=== PATIENT | female | born 1940 | race Caucasian/White ===

== ENCOUNTER 2024-10-27 19:35 | Inpatient (IN) | payer MEDICARE, BC ==
[~2024-10-27] VITALS: Ht 165.1 cm; Wt 51.3 kg
[2024-10-27] MEDS ORDERED: ONDANSETRON HCL/PF 4 MG/2 ML VIAL ONE (20:15)
[2024-10-27] MEDS ORDERED: MORPHINE SULFATE INJ 4 MG/ML DISP.SYRIN ONE ×2 (20:15→22:10)
[2024-10-27] MEDS: ONDANSETRON HCL/PF 4 MG/2 ML VIAL IVP ONE (20:22)
[2024-10-27 20:25] LABS: BASOPHILS % (AUTO) 0.3 % (0.0-2.0); EOSINOPHILS # (AUTO) 0.1 K/uL (0.0-0.7); HEMATOCRIT 41 % (33-45); LYMPHOCYTES # (AUTO) 1.1 K/uL (0.8-4.8); LYMPHOCYTES % (AUTO) 12.1 % (20.0-44.0); MEAN CORPUSCULAR HEMOGLOBIN 33 PG (26.0-33.0); MEAN CORPUSCULAR HGB CONC 34 g/dl (31.0-36.0); MEAN CORPUSCULAR VOLUME 96 fL (82-100); MONOCYTES # (AUTO) 0.8 K/uL (0.1-1.30); MONOCYTES % (AUTO) 8.9 % (2.0-12.0); NEUTROPHILS # (AUTO) 6.8 K/uL (1.8-8.9); NEUTROPHILS % (AUTO) 77.7 % (43.0-81.0); PLATELET COUNT (AUTO) 202 K/uL (150-450); RED BLOOD CELL COUNT(AUTO) 4.26 MIL/uL (4.0-5.2); RED CELL DISTRIBUTION WIDTH 12.9 % (11.5-15.0); WHITE BLOOD COUNT (AUTO) 8.8 K/uL (4.3-11.0)
[2024-10-27] MEDS: MORPHINE SULFATE INJ 2 MG/ML DISP.SYRIN IV ONE ×2 (20:25→21:58)
[2024-10-27 20:35] LABS: CALCIUM, SERUM 8.9 mg/dL (8.5-10.1)
[2024-10-27 20:50] LABS: INR 1.06 (0.91-1.10); PARTIAL THROMBOPLASTIN TIME 23.4 SEC (24.3-34.3); PROTHROMBIN TIME 11.2 SECS (9.2-11.1)
[2024-10-27] MEDS ORDERED: HYDROMORPHONE 1 MG/1 ML DISP.SYRIN ONE (22:52)
[2024-10-27] MEDS: HYDROMORPHONE 1 MG/1 ML DISP.SYRIN IV PRN (22:58)
[2024-10-27] MEDS ORDERED: MAGNESIUM HYDROXIDE 30 ML UDC PO PRN (23:00)
[2024-10-27] MEDS ORDERED: Z GUARD REMEDY 4 OZ OINT TP PRN (23:00)
[2024-10-27] MEDS ORDERED: MAG HYDROX/AL HYDROX/SIMETH 30 ML UDC PO PRN (23:00)
[2024-10-27] MEDS: IV D5/0.45 NACL 1,000 ML IV SCH (23:53)
[2024-10-28] MEDS ORDERED: ALEN70TA80 PO (00:44)
[2024-10-28] MEDS ORDERED: LEVO75TA7 PO (00:44)
[2024-10-28] MEDS ORDERED: PREG50CA PO (00:44)
[2024-10-28] MEDS ORDERED: ROSU20TA2 PO (00:44)
[2024-10-28] MEDS: HYDROMORPHONE 1 MG/1 ML DISP.SYRIN IV ONE (01:07)
[2024-10-28] MEDS: ONDANSETRON HCL/PF 4 MG/2 ML VIAL IVP PRN (03:01)
[2024-10-28 06:39] LABS: CALCIUM, SERUM 9.1 mg/dL (8.5-10.1); CREATININE 0.9 mg/dL (0.6-1.3); MAGNESIUM 2.1 mg/dL (1.8-2.4); PHOSPHORUS 4.2 mg/dL (2.5-4.9); POTASSIUM 4.7 mmol/L (3.5-5.1)
[2024-10-28 06:44] LABS: BASOPHILS % (AUTO) 0.1 % (0.0-2.0); HEMATOCRIT 41 % (33-45); HEMOGLOBIN 13.8 g/dL (11.5-14.8); LYMPHOCYTES # (AUTO) 0.7 K/uL (0.8-4.8); LYMPHOCYTES % (AUTO) 5.3 % (20.0-44.0); MEAN CORPUSCULAR HEMOGLOBIN 33 PG (26.0-33.0); MEAN CORPUSCULAR HGB CONC 34 g/dl (31.0-36.0); MEAN CORPUSCULAR VOLUME 97 fL (82-100); MONOCYTES # (AUTO) 1.3 K/uL (0.1-1.30); MONOCYTES % (AUTO) 10.3 % (2.0-12.0); NEUTROPHILS # (AUTO) 10.4 K/uL (1.8-8.9); NEUTROPHILS % (AUTO) 84.3 % (43.0-81.0); PLATELET COUNT (AUTO) 175 K/uL (150-450); RED BLOOD CELL COUNT(AUTO) 4.23 MIL/uL (4.0-5.2); RED CELL DISTRIBUTION WIDTH 13.2 % (11.5-15.0); WHITE BLOOD COUNT (AUTO) 12.3 K/uL (4.3-11.0)
[2024-10-28] MEDS: LEVOTHYROXINE SODIUM 75 MCG TABLET PO SCH (07:05)
[2024-10-28 07:30] VITALS: BP 115/59; TEMP 98.1; O2SAT 94
[2024-10-28 07:30] LABS: THYROID STIMULATING HORMONE 9.26 uIU/mL (0.358-3.74)
[2024-10-28] MEDS: PANTOPRAZOLE 40 MG VIAL IV SCH (08:11)
[2024-10-28] MEDS: ATORVASTATIN 40 MG TABLET PO SCH (08:12)
[2024-10-28] MEDS: PREGABALIN 25 MG CAPSULE PO SCH (08:12)
[2024-10-28] MEDS: HYDROMORPHONE 1 MG/1 ML DISP.SYRIN IV PRN (09:33)
[2024-10-28] MEDS ORDERED: HYDROMORPHONE 1 MG/1 ML DISP.SYRIN IV PRN (11:00)
[2024-10-28 11:35] LABS: THYROID STIMULATING HORMONE 9.18 uIU/mL (0.358-3.74)
[2024-10-28] MEDS ORDERED: BUPIVACAINE 0.5 % PF 150 MG/30 ML VIAL ONE (14:14)
[2024-10-28] MEDS ORDERED: FENTANYL PF 100MCG/2ML AMPUL ONE (14:16)
[2024-10-28] MEDS ORDERED: TRANEXAMIC ACID 1,000 MG/10 ML VIAL ONE ×2 (14:16→15:16)
[2024-10-28] MEDS ORDERED: ROCURONIUM BROMIDE 50 MG/5 ML ONE (14:17)
[2024-10-28] MEDS ORDERED: MORPHINE SULFATE INJ 2 MG/ML DISP.SYRIN IV PRN ×2 (16:30)
[2024-10-28] MEDS ORDERED: LABETALOL 20 MG/4 ML VIAL IV PRN (16:30)
[2024-10-28] MEDS ORDERED: ALBUTEROL FS 2.5 MG/0.5 ML VIAL.NEB ONE (16:53)
[2024-10-28] MEDS ORDERED: ALBUTEROL FS 2.5 MG/3 ML VIAL.NEB ONE (16:53)
[2024-10-28] MEDS ORDERED: ALBUTEROL SULFATE 8 GM HFA.AER.AD ONE (16:54)
[2024-10-28] MEDS: FENTANYL PF 100MCG/2ML AMPUL IV PRN (17:30)
[2024-10-28] MEDS ORDERED: ALBUTEROL HALF STRENGTH 1.25 MG/3 ML VIAL.NEB ONE (17:40)
[2024-10-28] MEDS ORDERED: ALBUTEROL HALF STRENGTH 1.25 MG/3 ML VIAL.NEB NEB SCH ×2 (18:00)
[2024-10-28 20:00] VITALS: BP 108/57; TEMP 97.7; O2SAT 90
[2024-10-29] MEDS: HYDROCODONE/APAP 5/325MG TABLET PO PRN (02:49)
[2024-10-29] MEDS: LEVOTHYROXINE SODIUM 75 MCG TABLET PO SCH (06:54)
[2024-10-29 08:00] VITALS: BP 91/76; TEMP 98.4; O2SAT 100
[2024-10-29 08:09] LABS: BASOPHILS % (AUTO) 0.1 % (0.0-2.0); EOSINOPHILS % (AUTO) 0.1 % (0.0-6.0); HEMATOCRIT 36 % (33-45); HEMOGLOBIN 12.4 g/dL (11.5-14.8); LYMPHOCYTES # (AUTO) 0.4 K/uL (0.8-4.8); LYMPHOCYTES % (AUTO) 3.5 % (20.0-44.0); MEAN CORPUSCULAR HEMOGLOBIN 33 PG (26.0-33.0); MEAN CORPUSCULAR HGB CONC 34 g/dl (31.0-36.0); MEAN CORPUSCULAR VOLUME 97 fL (82-100); MONOCYTES % (AUTO) 10.2 % (2.0-12.0); NEUTROPHILS # (AUTO) 8.7 K/uL (1.8-8.9); NEUTROPHILS % (AUTO) 86.1 % (43.0-81.0); PLATELET COUNT (AUTO) 142 K/uL (150-450); RED BLOOD CELL COUNT(AUTO) 3.75 MIL/uL (4.0-5.2); RED CELL DISTRIBUTION WIDTH 13.1 % (11.5-15.0); WHITE BLOOD COUNT (AUTO) 10.1 K/uL (4.3-11.0)
[2024-10-29 08:30] LABS: CALCIUM, SERUM 7.9 mg/dL (8.5-10.1); CREATININE 0.9 mg/dL (0.6-1.3); POTASSIUM 4.3 mmol/L (3.5-5.1)
[2024-10-29] MEDS: IV NS 0.9% 500 ML IV ONE ×2 (08:45→18:43)
[2024-10-29] MEDS: PANTOPRAZOLE 40 MG TABLET.DR PO SCH (08:59)
[2024-10-29] MEDS: ENOXAPARIN SODIUM 40 MG/0.4 ML DISP.SYRIN SQ SCH (08:59)
[2024-10-29] MEDS ORDERED: CEFAZOLIN 1 GM VIAL IV SCH (09:30)
[2024-10-29] MEDS ORDERED: CEFAZOLIN 1 GM VIAL IM SCH (09:30)
[2024-10-29] MEDS: FLUDROCORTISONE 0.1 MG TABLET PO SCH (11:11)
[2024-10-29] MEDS: CEFAZOLIN 2 GM in IV D5W 100 ML IV SCH (12:16)
[2024-10-29 16:00] VITALS: BP 98/45; TEMP 98.1; O2SAT 95
[2024-10-29] MEDS: IV D5/0.45 NACL 1,000 ML IV PRN (16:12)
[2024-10-29 20:00] VITALS: BP 95/63; TEMP 97.5; O2SAT 97
[2024-10-30 01:20] VITALS: BP 103/46; TEMP 97.5; O2SAT 96
[2024-10-30] MEDS: ACETAMINOPHEN 325 MG TABLET PO PRN (02:17)
[2024-10-30] MEDS: IV NS 0.9% 250 ML IV ONE (02:23)
[2024-10-30] MEDS: LIDOCAINE 5% (PATCH) 1 EA PATCH TP SCH (02:24)
[2024-10-30] MEDS: MORPHINE SULFATE INJ 2 MG/ML DISP.SYRIN IV PRN (04:11)
[2024-10-30 07:21] LABS: CALCIUM, SERUM 7.4 mg/dL (8.5-10.1); CREATININE 0.8 mg/dL (0.6-1.3); POTASSIUM 3.4 mmol/L (3.5-5.1)
[2024-10-30 07:31] LABS: BASOPHILS % (AUTO) 0.2 % (0.0-2.0); EOSINOPHILS % (AUTO) 0.2 % (0.0-6.0); HEMATOCRIT 31 % (33-45); HEMOGLOBIN 10.5 g/dL (11.5-14.8); LYMPHOCYTES # (AUTO) 0.5 K/uL (0.8-4.8); LYMPHOCYTES % (AUTO) 4.6 % (20.0-44.0); MEAN CORPUSCULAR HEMOGLOBIN 33 PG (26.0-33.0); MEAN CORPUSCULAR HGB CONC 34 g/dl (31.0-36.0); MEAN CORPUSCULAR VOLUME 95 fL (82-100); MONOCYTES % (AUTO) 10.1 % (2.0-12.0); NEUTROPHILS # (AUTO) 8.4 K/uL (1.8-8.9); NEUTROPHILS % (AUTO) 84.9 % (43.0-81.0); PLATELET COUNT (AUTO) 109 K/uL (150-450); RED CELL DISTRIBUTION WIDTH 12.8 % (11.5-15.0); WHITE BLOOD COUNT (AUTO) 9.9 K/uL (4.3-11.0)
[2024-10-30 08:00] VITALS: BP 94/56; TEMP 98.1; O2SAT 98
[2024-10-30] MEDS: POTASSIUM CHLORIDE 20 MEQ TAB.PRT.SR PO SCH (10:20)
[2024-10-30 13:29] VITALS: BP 129/56; O2SAT 99
[2024-10-30 16:00] VITALS: BP 120/58; TEMP 97.6; O2SAT 99
[2024-10-30 20:00] VITALS: BP 93/80; TEMP 98.8; O2SAT 96
[2024-10-31 06:28] LABS: BASOPHILS % (AUTO) 0.1 % (0.0-2.0); EOSINOPHILS % (AUTO) 0.3 % (0.0-6.0); HEMATOCRIT 31 % (33-45); HEMOGLOBIN 10.7 g/dL (11.5-14.8); LYMPHOCYTES # (AUTO) 0.5 K/uL (0.8-4.8); LYMPHOCYTES % (AUTO) 6.3 % (20.0-44.0); MEAN CORPUSCULAR HEMOGLOBIN 33 PG (26.0-33.0); MEAN CORPUSCULAR HGB CONC 35 g/dl (31.0-36.0); MEAN CORPUSCULAR VOLUME 95 fL (82-100); MONOCYTES # (AUTO) 0.9 K/uL (0.1-1.30); NEUTROPHILS # (AUTO) 7.1 K/uL (1.8-8.9); NEUTROPHILS % (AUTO) 82.3 % (43.0-81.0); PLATELET COUNT (AUTO) 111 K/uL (150-450); RED BLOOD CELL COUNT(AUTO) 3.21 MIL/uL (4.0-5.2); RED CELL DISTRIBUTION WIDTH 12.8 % (11.5-15.0); WHITE BLOOD COUNT (AUTO) 8.6 K/uL (4.3-11.0)
[2024-10-31 06:35] LABS: ALBUMIN 2.1 g/dL (3.4-5.0); CALCIUM, SERUM 7.8 mg/dL (8.5-10.1); CREATININE 0.7 mg/dL (0.6-1.3); MAGNESIUM 1.9 mg/dL (1.8-2.4); PHOSPHORUS 1.3 mg/dL (2.5-4.9); POTASSIUM 2.9 mmol/L (3.5-5.1)
[2024-10-31 08:00] VITALS: BP 117/59; TEMP 98.1; O2SAT 97
[2024-10-31] MEDS: POTASSIUM CHLORIDE 20 MEQ TAB.PRT.SR PO SCH (08:19)
[2024-10-31] MEDS: NEUTRA PHOS 1 POWD.PACKET PO SCH (08:19)
[2024-10-31] MEDS ORDERED: LIDO30AD10 TP (11:17)
[2024-10-31] MEDS ORDERED: HYDR-4303 PO (11:17)
[2024-10-31] MEDS ORDERED: PANT40TA49 PO (11:17)
[2024-10-31] MEDS ORDERED: FLUD0.1T3 PO (11:17)
[2024-10-31 20:00] VITALS: BP 123/62; TEMP 97.9; O2SAT 97
[2024-11-01 01:32] VITALS: TEMP 97.9
[2024-11-01 07:18] LABS: ALBUMIN 2.1 g/dL (3.4-5.0); BILIRUBIN,TOTAL 0.7 mg/dL (0.2-1.0); CALCIUM, SERUM 7.8 mg/dL (8.5-10.1); CREATININE 0.7 mg/dL (0.6-1.3); PHOSPHORUS 2.1 mg/dL (2.5-4.9); POTASSIUM 3.4 mmol/L (3.5-5.1); TOTAL PROTEIN, SERUM 5.1 g/dL (6.4-8.2)
[2024-11-01 07:55] LABS: BASOPHILS % (AUTO) 0.2 % (0.0-2.0); EOSINOPHILS # (AUTO) 0.1 K/uL (0.0-0.7); EOSINOPHILS % (AUTO) 1.6 % (0.0-6.0); HEMATOCRIT 29 % (33-45); HEMOGLOBIN 10.2 g/dL (11.5-14.8); LYMPHOCYTES # (AUTO) 0.7 K/uL (0.8-4.8); LYMPHOCYTES % (AUTO) 10.5 % (20.0-44.0); MEAN CORPUSCULAR HEMOGLOBIN 33 PG (26.0-33.0); MEAN CORPUSCULAR HGB CONC 35 g/dl (31.0-36.0); MEAN CORPUSCULAR VOLUME 94 fL (82-100); MONOCYTES # (AUTO) 0.8 K/uL (0.1-1.30); MONOCYTES % (AUTO) 11.8 % (2.0-12.0); NEUTROPHILS # (AUTO) 5.3 K/uL (1.8-8.9); NEUTROPHILS % (AUTO) 75.9 % (43.0-81.0); PLATELET COUNT (AUTO) 137 K/uL (150-450); RED BLOOD CELL COUNT(AUTO) 3.09 MIL/uL (4.0-5.2); RED CELL DISTRIBUTION WIDTH 13.1 % (11.5-15.0); WHITE BLOOD COUNT (AUTO) 6.9 K/uL (4.3-11.0)
[2024-11-01] MEDS: NEUTRA PHOS 1 POWD.PACKET PO SCH (09:30)
[2024-11-01] MEDS: POTASSIUM CHLORIDE 20 MEQ TAB.PRT.SR PO SCH (09:30)
== END 2024-11-01 09:30 | DRG 522 ==
LOC: ER 19:44 → MED 22:18
PROVIDERS: ATTEND Nurse Practitioner Family
PROC: 0SRR0J9 Replacement of Right Hip Joint, Femoral Surface with Synthetic Substitute, Cemented, Open Approach (ICD-10-PCS; principal; 2024-10-28)
DX: S72.001A Fracture of unspecified part of neck of right femur, initial encounter for closed fracture (principal); E44.0 Moderate protein-calorie malnutrition; W01.0XXA Fall on same level from slipping, tripping and stumbling without subsequent striking against object, initial encounter; M81.0 Age-related osteoporosis without current pathological fracture; Z85.51 Personal history of malignant neoplasm of bladder; Z90.710 Acquired absence of both cervix and uterus; Z79.52 Long term (current) use of systemic steroids; Z79.899 Other long term (current) drug therapy; E03.9 Hypothyroidism, unspecified; E78.5 Hyperlipidemia, unspecified; Z93.6 Other artificial openings of urinary tract status; D63.8 Anemia in other chronic diseases classified elsewhere; E88.09 Other disorders of plasma-protein metabolism, not elsewhere classified; F17.210 Nicotine dependence, cigarettes, uncomplicated; E87.6 Hypokalemia; Y92.003 Bedroom of unspecified non-institutional (private) residence as the place of occurrence of the external cause; Z79.890 Hormone replacement therapy; Z79.83 Long term (current) use of bisphosphonates
CPT/HCPCS: 36415; 71045-TC; 72170-TC; 73502; 73552; 73700-TC; 80048-TC; 80053-TC; 80061-TC; 82040-TC; 82533; 83735-TC; 84100-TC; 84439-TC; 84443-TC; 85025-TC; 85730-TC; 86850-TC; 88305-TC; 88311-TC; 93307-TC; 97110-TC; 97112-TC; 97116-TC; 97530-TC; A4217; A4223; A6209; C1713; C1776; G0378; J0690; J1171; J1650; J2270; J2405; J2470; J2704; J2765; J3010; J3490; J7030; J7040; J7042; J7050; J7060